=== PATIENT | female | born 1940 | race Asian ===

== ENCOUNTER 2018-05-18 08:13 | Day surgery (SDC) | payer MEDICARE, MEDICAID ==
[2018-05-18 09:00] VITALS: BP 225/85
[2018-05-18 09:16] LABS: BASOPHILS % (AUTO) 0.3 % (0-1); EOSINOPHILS # (AUTO) 0.2 X10'3 (0-0.9); EOSINOPHILS % (AUTO) 2.5 % (0-6); HEMATOCRIT 38.3 % (35.0-45.0); HEMOGLOBIN 12.7 g/dl (12.0-16.0); LYMPHOCYTES # (AUTO) 1.5 X10'3 (1.1-4.8); MEAN CORPUSCULAR HEMOGLOBIN 29.8 PG (27.0-31.0); MEAN CORPUSCULAR HGB CONC 33.2 g/dL (33.0-36.5); MEAN CORPUSCULAR VOLUME 89.6 FL (78-98); MEAN PLATELET VOLUME 7.4 FL (7.4-10.4); MONOCYTES # (AUTO) 0.5 X10'3 (0-0.9); MONOCYTES % (AUTO) 6.1 % (2-12); NEUTROPHILS # (AUTO) 6.6 X10'3 (1.8-7.7); NEUTROPHILS % (AUTO) 74.1 % (42-75); PLATELET COUNT 229 X10'3 (140-440); RED BLOOD COUNT 4.27 X10'6 (4.20-5.60); RED CELL DISTRIBUTION WIDTH 17.1 % (11.5-14.5); WHITE BLOOD COUNT 8.9 X10'3 (4.5-11.0)
[2018-05-18] MEDS ORDERED: LISI-604 PO (09:25)
[2018-05-18] MEDS ORDERED: CARSR60C PO (09:25)
[2018-05-18] MEDS ORDERED: WARF1TAB PO (09:25)
[2018-05-18 09:35] LABS: PARTIAL THROMBOPLASTIN TIME 27 SECONDS (22-32)
[2018-05-18 09:47] LABS: ALBUMIN 2.6 G/DL (3.4-5.0); ANION GAP 10 (8-16); BLOOD UREA NITROGEN 51 MG/DL (7-18); CALCIUM 8.2 MG/DL (8.5-10.1); CHLORIDE 106 MMOL/L (99-107); CREATININE 4.64 MG/DL (0.40-0.90); GLUCOSE 188 MG/DL (70-104); POTASSIUM 3.4 MMOL/L (3.5-5.1); SODIUM 142 MMOL/L (135-145); TOTAL CARBON DIOXIDE 25.9 MMOL/L (24-32); eGFR 9 ML/MIN
[2018-05-18] MEDS ORDERED: LIDOcaine 1%/PF 5ML 10 MG/ML VIAL ONE (10:55)
[2018-05-18] MEDS ORDERED: fentaNYL/PF 50MCG/1 ML 2ML syringe IV PRN (11:00)
[2018-05-18] MEDS ORDERED: midazolam 2 mg/2 ml injection IV PRN (11:00)
[2018-05-18] MEDS ORDERED: heparin 1,000 units/ml 10ml inj ICATH ONE (11:00)
[2018-05-18] MEDS ORDERED: heparin 1,000unit/ml 10ml vial 10 ML ONE (11:00)
[2018-05-18] MEDS ORDERED: LIDOcaine 1%/PF 5ML 10 MG/ML VIAL SQ ONE (11:00)
[2018-05-18] MEDS ORDERED: fentaNYL/PF 50MCG/1 ML 2ML syringe ONE (11:01)
[2018-05-18] MEDS ORDERED: midazolam 2 mg/2 ml injection ONE (11:01)
[2018-05-18] MEDS ORDERED: iohexol 300 MG/1 ML 50ml polymer ONE (11:20)
[2018-05-18] MEDS ORDERED: hydrALAZINE 20mg/ml inj. IV ONE (11:21)
[2018-05-18 11:55] VITALS: BP 173/64
[2018-05-18 12:10] VITALS: BP 163/55
[2018-05-18 12:25] VITALS: BP 160/55
[2018-05-18 12:40] VITALS: BP 159/33
== END 2018-05-18 13:00 | disposition home or self-care (01) ==
LOC: SSTAY O 08:13
PROVIDERS: ATTEND Radiology Vascular & Interventional Radiology
DX: I12.0 Hypertensive chronic kidney disease with stage 5 chronic kidney disease or end stage renal disease (principal); N18.6 End stage renal disease; Z79.01 Long term (current) use of anticoagulants; Z79.899 Other long term (current) drug therapy
CPT/HCPCS: 36415; 36581; 77001; 80048; 85025; 85610; 85730; 99152; C1750; C1769; J0360; J1644; J2001; J2250; J3010; Q9967; A9270

== ENCOUNTER 2018-08-14 10:07 | Emergency (ER) | payer MEDICARE, MEDICAID ==
[~2018-08-14] VITALS: Ht 154.9 cm; Wt 59.1 kg
[~2018-08-14 10:07] MED LIST: CARSR60C PO; LISI-604 PO; WARF1TAB PO
[2018-08-14 10:50] LABS: BASOPHILS # (AUTO) 0.1 X10'3 (0-0.2); BASOPHILS % (AUTO) 0.8 % (0-1); EOSINOPHILS # (AUTO) 0.2 X10'3 (0-0.9); EOSINOPHILS % (AUTO) 1.6 % (0-6); HEMATOCRIT 36.2 % (35.0-45.0); HEMOGLOBIN 12.3 g/dl (12.0-16.0); LYMPHOCYTES # (AUTO) 1.8 X10'3 (1.1-4.8); LYMPHOCYTES % (AUTO) 18.3 % (21-51); MEAN CORPUSCULAR HEMOGLOBIN 31.9 PG (27.0-31.0); MEAN CORPUSCULAR VOLUME 93.7 FL (78-98); MEAN PLATELET VOLUME 7.7 FL (7.4-10.4); MONOCYTES # (AUTO) 0.5 X10'3 (0-0.9); NEUTROPHILS # (AUTO) 7.2 X10'3 (1.8-7.7); NEUTROPHILS % (AUTO) 74.3 % (42-75); PLATELET COUNT 265 X10'3 (140-440); RED BLOOD COUNT 3.86 X10'6 (4.20-5.60); WHITE BLOOD COUNT 9.6 X10'3 (4.5-11.0)
[2018-08-14 11:05] LABS: ALANINE AMINOTRANSFERASE 22 U/L (12-78); ALBUMIN 2.9 G/DL (3.4-5.0); ALBUMIN/GLOBULIN RATIO 0.6 (1.1-1.5); ALKALINE PHOSPHATASE 130 IU/L (46-116); AMYLASE 45 U/L (25-115); ANION GAP 6 (8-16); ASPARTATE AMINO TRANSFERASE 22 U/L (10-37); BILIRUBIN,TOTAL 0.3 MG/DL (0.1-1.0); BLOOD UREA NITROGEN 21 MG/DL (7-18); BUN/CREATININE RATIO 6.2 (6.6-38.0); CALCIUM 8.1 MG/DL (8.5-10.1); CHLORIDE 99 MMOL/L (99-107); CREATININE 3.41 MG/DL (0.40-0.90); GLUCOSE 193 MG/DL (70-104); LIPASE 113 U/L (73-393); POTASSIUM 3.6 MMOL/L (3.5-5.1); SODIUM 134 MMOL/L (135-145); TOTAL CARBON DIOXIDE 28.7 MMOL/L (24-32); TOTAL PROTEIN 7.7 G/DL (6.4-8.2); eGFR 13 ML/MIN
[2018-08-14 11:40] LABS: CLARITY,URINE CLOUDY (Clear); COLOR,URINE YELLOW (Yellow); GLUCOSE, URINE 250 mg/dl (Neg); KETONES,URINE NEGATIVE (Neg); LEUKOCYTE ESTERASE ,URINE NEGATIVE (Neg); NITRITES, URINE NEGATIVE (Neg); OCCULT BLOOD,URINE MODERATE (Neg); PROTEIN,URINE >=300 mg/dl (Neg); UROBILINOGEN,URINE 0.2 E.U/dL (0.2-1.0)
[2018-08-14 11:46] LABS: UA COLLECTION TYPE STRAIGHT CATH
[2018-08-14 11:48] LABS: COARSE GRANULAR CAST 0-3 /LPF (NEGATIVE); HYALINE CASTS 0-3 /LPF (NEGATIVE)
[2018-08-14 11:49] LABS: MUCUS STRANDS NONE SEEN /LPF (Neg); SQUAMOUS EPITHELIAL CELL,UR FEW /LPF (FEW); TRANSITIONAL EPI CELLS,URINE FEW /HPF
[2018-08-14 11:51] LABS: AMORPHOUS URATES 4+; BACTERIA,URINE NONE SEEN /HPF (Neg); WBC,URINE 0-4 /HPF (0-4)
[2018-08-14 12:27] VITALS: BP 141/48
== END 2018-08-14 12:35 | disposition home or self-care (01) ==
LOC: ER 10:08
DX: R10.30 Lower abdominal pain, unspecified (principal); R07.0 Pain in throat; N18.6 End stage renal disease; Z79.899 Other long term (current) drug therapy; Z79.01 Long term (current) use of anticoagulants; Z99.2 Dependence on renal dialysis
CPT/HCPCS: 36415; 74176; 80053; 81001; 82150; 83690; 84484; 85025; 85610; 99284; P9612